=== PATIENT | female | born 1995 | race Caucasian/White ===

== ENCOUNTER 2016-05-28 17:51 | Emergency (ER) | payer OTHER ==
[~2016-05-28] VITALS: Ht 160 cm; Wt 88.0 kg
[~2016-05-28 17:51] MED LIST: BACTRIM,SEPT1 TABLET PO; NAPROXEN500 MG PO; PYRIDIUM100 MG PO; SPRINTEC1 EACH PO; [UNRECOGNIZED DRUG - OTHER] PO
[2016-05-28 21:40] VITALS: BP 143/96
== END 2016-05-28 21:44 | disposition home or self-care (01) ==
LOC: EME 17:51
PROC: 0HQGXZZ Repair Left Hand Skin, External Approach (ICD-10-PCS; principal; 2016-05-28)
DX: S61.012A Laceration without foreign body of left thumb without damage to nail, initial encounter (principal); W26.0XXA Contact with knife, initial encounter; Y99.0 Civilian activity done for income or pay; Z88.1 Allergy status to other antibiotic agents
CPT/HCPCS: 99281; 99284

== ENCOUNTER 2016-06-10 18:09 | Emergency (ER) | payer OTHER ==
[~2016-06-10] VITALS: Ht 160 cm; Wt 88.3 kg
[2016-06-10] MEDS ORDERED: MOTRIN600 MG PO (19:30)
[2016-06-10 20:17] VITALS: BP 140/82
== END 2016-06-10 20:18 | disposition home or self-care (01) ==
LOC: EME 18:09
DX: S93.402A Sprain of unspecified ligament of left ankle, initial encounter (principal); X50.9XXA Other and unspecified overexertion or strenuous movements or postures, initial encounter
CPT/HCPCS: 73610; 99281; 99284

== ENCOUNTER 2017-04-28 21:00 | Emergency (ER) | payer BC ==
[~2017-04-28] VITALS: Ht 162.6 cm; Wt 85.8 kg
[~2017-04-28 21:00] MED LIST changes: +MOTRIN600 MG PO
[2017-04-28 21:17] LABS: HEMATOCRIT 40.1 % (36.0-46.0); HEMOGLOBIN 13.3 G/DL (11.9-15.5); MCH 27.4 PG (29.0-34.0); MCHC 33.2 G/DL (30.0-36.0); MCV 82.5 FL (83-99); PLATELET COUNT 251 K/uL (156-360); RBC DIS.WIDTH-CV 12.3 % (11.8-14.6); RBC DIS.WIDTH-SD 37.4 % (39-53); RED BLOOD COUNT 4.86 M/uL (3.80-5.20)
[2017-04-28 21:30] LABS: ALBUMIN 4.2 g/dL (3.2-4.8); CHLORIDE 103 mEq/L (99-109); POTASSIUM 3.5 mEq/L (3.7-5.4); SODIUM 138 mEq/L (136-147)
[2017-04-28 21:32] LABS: GLUCOSE 110 mg/dL (70-99)
[2017-04-28 21:33] LABS: TOTAL PROTEIN 7.4 g/dL (6.4-8.3)
[2017-04-28 21:34] LABS: TOTAL BILIRUBIN 0.5 mg/dL (0.0-1.0)
[2017-04-28 21:36] LABS: ALKALINE PHOSPHATASE 81 IU/L (3-129); CREATININE 0.8 mg/dL (0.6-1.3); GFR ESTIMATE (CALCULATED) > 59 mL/min/
[2017-04-28 21:37] LABS: UREA NITROGEN (BUN) 9 mg/dL (9-23)
[2017-04-28 21:38] LABS: AST (GOT) 15 IU/L (2-34)
[2017-04-28 21:39] LABS: ALT (GPT) 15 IU/L (3-49)
[2017-04-28 21:47] LABS: QUANTITATIVE HCG < 4.0 MIU/ML
[2017-04-29 00:54] LABS: APPEARANCE CLOUDY ((CLEAR)); BILIRUBIN NEGATIVE; BLOOD NEGATIVE; COLOR YELLOW ((YELLOW)); GLUCOSE (STRIP) NEGATIVE; KETONES NEGATIVE; LEUKOCYTES TRACE; NITRITE NEGATIVE; PROTEIN (STRIP) 30; SPECIFIC GRAVITY 1.027 (1.000-1.030); UROBILINOGEN 0.2 MG/DL (0.2-1.0)
[2017-04-29 00:59] LABS: BACTERIA RARE /HPF; EPITHELIAL CELLS 3+ /HPF; MUCUS 3+ /LPF; RED BLOOD CELLS 0-5 /HPF (0-5); UCUL ADDED? YES
[2017-04-29] MEDS ORDERED: KEFLEX500 MG PO (02:06)
[2017-04-29] MEDS ORDERED: ZOFRAN ODT4 MG PO (02:09)
[2017-04-29 02:33] VITALS: BP 138/81
== END 2017-04-29 02:47 | disposition home or self-care (01) ==
LOC: EME 21:00
DX: K52.9 Noninfective gastroenteritis and colitis, unspecified (principal); N39.0 Urinary tract infection, site not specified; J45.909 Unspecified asthma, uncomplicated; Z88.1 Allergy status to other antibiotic agents
CPT/HCPCS: 74177; 80053; 81003; 84702; 85027; 87086; 99281; 99285; J2405; J3010; J7030